=== PATIENT | female | born 1990 | race Two or more races ===

== ENCOUNTER 2017-05-22 18:15 | Emergency (ER) | payer OTHER ==
[~2017-05-22] VITALS: Ht 170.2 cm; Wt 77.1 kg
[2017-05-22 19:20] VITALS: BP 127/86
[2017-05-22] MEDS ORDERED: Methocarbamol 750mg tab ORAL ONE (21:00)
[2017-05-22] MEDS ORDERED: ROBAXIN-750750 MG PO (21:40)
[2017-05-22] MEDS ORDERED: TYLENOL EXTRA500 MG ORAL (21:40)
[2017-05-22 22:00] VITALS: BP 109/60
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
--- NOTE | 2017-05-23 12:42 | Diagnostic Imaging Report ---
Indication: Neck Pain Findings: 3 views of the cervical spine were obtained. There is no acute fracture identified. Alignment is normal. The open-mouth odontoid view shows an intact dens and good alignment of the lateral masses with respect to the body of C2. There is no soft tissue swelling. Impression: Negative cervical spine examination.
== END 2017-05-22 22:00 | disposition home or self-care (01) ==
LOC: EMR 19:14
DX: S16.1XXA Strain of muscle, fascia and tendon at neck level, initial encounter (principal); R42 Dizziness and giddiness; V43.62XA Car passenger injured in collision with other type car in traffic accident, initial encounter; Y93.9 Activity, unspecified; Y92.410 Unspecified street and highway as the place of occurrence of the external cause
CPT/HCPCS: 72040; 99284